=== PATIENT | female | born 1970 | race Caucasian/White ===

== ENCOUNTER 2016-07-05 17:36 | Inpatient (IN) | payer OTHER ==
[~2016-07-05] VITALS: Ht 160 cm; Wt 82.0 kg
[2016-07-05 23:24] VITALS: BP 120/60; PULSE 87; RESP 18
[2016-07-05] MEDS ORDERED: ONDANSETRON 4 MG INJ IV PRN (23:30)
[2016-07-05] MEDS ORDERED: ACETAMINOPHEN 325 MG TAB PO PRN (23:30)
[2016-07-05 23:45] VITALS: Ht 160 cm; Wt 82.0 kg
[2016-07-06] VITALS (10 sets, daily range): BP systolic 108–126; BP diastolic 61–78; PULSE 72–92; RESP 17–18
[2016-07-06] MEDS ORDERED: morphine 2 MG INJ IV PRN (06:00)
[2016-07-06 10:05] LABS: ADD SCAN DIFF NO
[2016-07-06 10:16] LABS: ABNORMAL IP MESSAGE 1; BASOPHIL # 0.1 10^3/ul (0.0-0.1); BASOPHILS % 0.9 % (0.0-2.0); EOSINOPHILS # 0.3 10^3/ul (0.0-0.5); EOSINOPHILS % 4.5 % (0.0-7.0); HEMATOCRIT 29.7 % (37.0-47.0); LYMPHOCYTES % 35.9 % (15.0-51.0); MEAN CORPUSCULAR HEMOGLOBIN 18.7 pg (29.0-33.0); MEAN CORPUSCULAR HGB CONC 26.9 g/dl (32.0-37.0); MEAN CORPUSCULAR VOLUME 69.4 fl (82.0-101.0); MONOCYTE # 0.3 10^3/ul (0.3-0.9); MONOCYTES % 4.9 % (0.0-11.0); NEUTROPHILS % 53.6 % (39.0-77.0); PLATELET COUNT 255 10^3/UL (140-415); RED BLOOD COUNT 4.28 10^6/ul (4.20-5.40); RED CELL DISTRIBUTION WIDTH 24.8 % (11.5-14.5); WHITE BLOOD COUNT 5.5 10^3/ul (4.8-10.8)
[2016-07-06 10:21] LABS: ALBUMIN 3.7 g/dl (3.3-4.9)
[2016-07-06 10:22] LABS: POTASSIUM 3.3 mmol/L (3.5-5.1)
[2016-07-06 10:24] LABS: ALBUMIN/GLOBULIN RATIO 1.15; BILIRUBIN,INDIRECT 0.7 mg/dl (0-1.1); BILIRUBIN,TOTAL 0.7 mg/dl (0.2-1.3); CALCIUM 8.9 mg/dl (8.4-10.2); CREATININE 0.58 mg/dl (0.44-1.00); TOTAL PROTEIN 6.9 g/dl (6.1-8.1)
--- NOTE | 2016-07-06 13:27 | HP ---
Date/Time of Note Date/Time of Note DATE: 07/06/16 TIME: 13:24 Assessment/Plan VTE Prophylaxis VTE Prophylaxis Intervention: SCD's Lines/Catheters IV C[facility]ter Type (from [facility] Peripheral IV Urinary Cath still in place: No Assessment/Plan Assessment/Plan IMPRESSION 1. Dysfunctional Uterine Bleedin/2 fibroids - s/p 2 units of PRBCs. 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 Severe Anemia :2/2 above - see # 1 for plan of care - given pt has already received blood transfusion, will not w/u for iron deficiency, but she has been advised to do so as outpt with PCP 3. Ovarian Cyst - no sign of rapture - outpt survelliance. HPI/ROS Admit Date/Time Admit Date/Time Jul 05, 2016 at 22:25 Hx of Present Illness This is a 46 yo female who initially presented to outside hospital complaining of vaginal bleeding. She was transferred to [facility] ffor insurance reason. On my questioning, she complained of heavy menses for about 4 months. Denied vaginal bleeding in between her periods. She also complained of lower abd pain. Denied fever, chills, nausea, vomiting, chest pain, SOB or urinary symptoms. Pelvic u/ s at outside hospital showed 5 uterine fibroids and a simple ovarian cyst. Her hgb was 5.6. She has received 2 units of PRBCs here. . PMH/Family/Social Past Medical History Medical History: no pertinent history Past Surgical History Past Surgical Hx: no surgical history Social History Alcohol Use: none Smoking Status: Never smoker Drug Use: none Exam/Review of Systems Vital Signs Vitals Vital Signs Date Time Temp Pulse Resp B/P Pulse Ox O2 Delivery O2 Flow Rate FiO2 07/06/16 08:29 98.1 82 18 113/61 99 07/06/16 06:15 Room Air Intake and Output 07/05/16 07/05/16 07/06/16 15:00 23:00 07:00 Intake Total 1310 ml Balance 1310 ml Exam Constitutional: alert, oriented, well developed Head: atraumatic, normocephalic Eyes: EOMI, PERRL Neck: non-tender, supple Respiratory: clear to auscultation, normal air movement Cardiovascular: nl pulses, regular rate and rhythm Gastrointestinal: other (mild tenderness in suprapubic area. ), soft Labs Result Diagram: 07/06/1655 07/06/1655 Medications Medications Current Medications Acetaminophen (Tylenol Tab) 650 mg Q6H PRN PO PAIN AND OR ELEVATED TEMP; Start 07/05/16 at 23:30 Ondansetron HCl (Zofran Inj) 4 mg Q6H PRN IV NAUSEA AND/OR VOMITING Last administered on 07/06/16 06:00; Admin Dose 4 MG; Start 07/05/16 at 23:30 Influenza Virus Vaccine (Fluzone) 0.5 ml ONCE ONCE IM* ; Start 07/08/16 at 09:00 ; Stop 07/08/16 at 09:01 Morphine Sulfate (morphine) 2 mg Q4H PRN IV PAIN Last administered on 07/06/16 06:25; Admin Dose 2 MG; Start 07/06/16 at 06:00 GLEN STILL MD Jul 06, 2016 13:27
--- NOTE | 2016-07-06 17:07 | PDOCDIS ---
Discharge Instructions CONDITION Patient Condition: Good HOME CARE INSTRUCTIONS: Diet Instructions: Regular ACTIVITY: Activity Restrictions: No Restrictions FOLLOW UP/APPOINTMENTS Appointments F/U WITH YOUR PCP AND A DATA MIGRATION CONSULTANT IN 1-2 WEEKS IJEOMA PRIETO Jul 06, 2016 17:07
--- NOTE | 2016-07-06 17:12 | CONS ---
Date/Time of Note Date/Time of Note DATE: 07/06/16 TIME: 17:01 Consultation Date/Type/Reason Admit Date/Time Jul 06 2016 Hospital consult Initial Consult Date This patient is a 46 years old 7 para 7 , living 6 ,Her last ended with demise and delivery at 6 months Her other 6 3 deliveries were normal vaginal. . She came to the emergency room complaining of heavy vaginal bleeding, actually she was seen in [facility] and was sent here due to insurance situation In reviewing her past medical history she has a complaint of heavy menstrual periods for over 6 months. She also inserted an IUD about 2 years ago supposed to be removed 3 months later Due to low hemoglobin and hematocrit patient was transfused with 2 units of blood. She is now stable. On examination her conjunctival or slightly pale. Otherwise ears nose throat appear to be normal Neck is normal no thyromegaly No lymph node enlargement anywhere in her body. Her chest is clear to auscultation and percussion no rales Heart normal sinus rhythm no murmur. Her pulse rate is about 90 Her breasts are soft, nipples are intact, no evidence of any nodule Abdomen is soft bowel sounds are normal No enlargement of the uterus could be felt on abdominal exam Extremities are normal knee-jerk, no edema On pelvic examination she still has some bleeding . Vagina and appears to be normal. The cervix is slightly abnormal (it does contain a fibroid nodule according to ultrasound) Her IUD string is palpable Reason for Consultation Before discharge she was given a prescription for iron and and medroxyprogesterone acetate tablets 10 mg daily 24 HR Interval Summary Free Text/Dictation Disposition: Her hemoglobin is returned to transfusion 8 with hematocrit of 29.7 her vital signs are stable She will be discharged with recommendation to see her pmp certified project manager for removal of IUD and doing a D&C if bleeding repeats possible hysterectomy would be performed This patient is an intelligent person and understand all of those option and will discuss these with her [id number] Detailed Summary Eyes: no complaints (Somewhat pale conjunctiva), No discharge, No other, No pain, No redness, No visual change ENT: No bleeding, No congestion, No discharge, No dysphagia, No no complaints, No other, No pain, No sore throat Respiratory: No cough, No no complaints, No other, No pain, No pleuritic pain, No shortness of breath, No sputum, No wheezing Cardiovascular: No chest pain, No edema, No lightheadedness, No no complaints, No orthopenea, No other, No palpitations, No paroxysmal nocturnal dyspnea Gastrointestinal: No blood, No constipation, No decreased appetite, No diarrhea , No flatus, No nausea, No no complaints, No other, No pain, No passing stool, No vomiting Genitourinary: bleeding (Some degree of vaginal bleeding as I mentioned the uterus is slightly larger than normal with multiple fibroid 1 of them on the cervix no adnexal mass), No discharge, No dysuria, No flank pain, No hematuria, No no complaints, No other Musculoskeletal: No back pain, No bone/joint pain, No neck pain, No no complaints, No other, No restricted range of motion, No swelling Skin: No bruising, No erythema, No laceration, No no complaints, No other, No pruritis, No rash, No skin lesions Neurologic: other (Deep tendon reflexes normal), No confusion, No dizziness, No focal-weakness, No headache, No no complaints , No seizure, No syncope Endocrine: No dry skin, No no complaints, No other, No polydypsia, No polyuria , No temp intolerance Lymphatic: No adenopathy, No lymphadema, No no complaints, No other, No tender nodes Exam/Review of Systems Vital Signs Vitals Vital Signs Date Time Temp Pulse Resp B/P Pulse Ox O2 Delivery O2 Flow Rate FiO2 07/06/16 08:29 98.1 82 18 113/61 99 07/06/16 06:15 Room Air Intake and Output 07/05/16 07/05/16 07/06/16 15:00 23:00 07:00 Intake Total 1310 ml Balance 1310 ml Results Result Diagram: 07/06/16 0955 07/06/16 0955 Results 24 hrs Laboratory Tests Test 07/06/16 09:55 Alanine Aminotransferase (ALT/SGPT) 22 Albumin 3.7 Albumin/Globulin Ratio 1.15 Alkaline Phosphatase 64 Anion Gap 16 Aspartate Amino Transf (AST/SGOT) 13 L Basophils # 0.1 Basophils % 0.9 Blood Urea Nitrogen 10 Calcium Level 8.9 Carbon Dioxide Level 23 Chloride Level 105 Creatinine 0.58 Direct Bilirubin 0.00 Eosinophils # 0.3 Eosinophils % 4.5 Globulin 3.20 Glucose Level 116 Hematocrit 29.7 L Hemoglobin 8.0 L Indirect Bilirubin 0.7 Lymphocytes # 2.0 Lymphocytes % 35.9 Mean Corpuscular Hemoglobin 18.7 L Mean Corpuscular Hemoglobin Concent 26.9 L Mean Corpuscular Volume 69.4 L Mean Platelet Volume Monocytes # 0.3 Monocytes % 4.9 Neutrophils # 3.0 Neutrophils % 53.6 Nucleated Red Blood Cells # 0.0 Nucleated Red Blood Cells % 0.0 Platelet Count 255 Potassium Level 3.3 L Red Blood Count 4.28 Red Cell Distribution Width 24.8 H Sodium Level 141 Total Bilirubin 0.7 Total Protein 6.9 White Blood Count 5.5 Medications Medications Current Medications Acetaminophen (Tylenol Tab) 650 mg Q6H PRN PO PAIN AND OR ELEVATED TEMP; Start 07/05/16 at 23:30 Ondansetron HCl (Zofran Inj) 4 mg Q6H PRN IV NAUSEA AND/OR VOMITING Last administered on 07/06/16 06:00; Admin Dose 4 MG; Start 07/05/16 at 23:30 Influenza Virus Vaccine (Fluzone) 0.5 ml ONCE ONCE IM* ; Start 07/08/16 at 09:00 ; Stop 07/08/16 at 09:01 Morphine Sulfate (morphine) 2 mg Q4H PRN IV PAIN Last administered on 07/06/16 06:25; Admin Dose 2 MG; Start 07/06/16 at 06:00 WILBERT TOLBERT MD Jul 06, 2016 17:11
--- NOTE | 2016-07-07 05:42 | DS ---
DATE OF ADMISSION: 07/05/2016 DATE OF DISCHARGE: 07/06/2016 DISCHARGE DIAGNOSES: 1. Dysfunctional uterine bleeding secondary to fibroids, status post 2 units of packed red blood ce lls. Gynecology consult appreciated. The patient is sent now with OCPs. The patient is to follow up with gynecology as outpatient. 2. Severe anemia secondary to #1, status post 3 units of packed red blood cells, now stable. The p atient is to follow up with outpatient integration consultant. 3. Ovarian cyst, no signs of rupture. Outpatient surveillance. HOSPITAL COURSE: The patient is a 46-year-old female who came from an outside hospital complaining of vaginal bleeding. She was transferred to [facility] for insurance reasons. The patient had been having heavy menses with menorrhagia for 4 months. She denied vaginal bleeding between her periods. She was also complaining of lower abdominal pain. Pelvic ultrasound at an outside hospital showed 5 koi rine fibroids and simple ovarian cyst. ____ 5.6. She received 2 units of packed red blood cells he re at [facility] and 1 unit at outside hospital. The patient was seen by integration consultant here at [facility]. Recommendation was for outpatient VESSEL MASTER followup. The patient was given a p rescription for OCPs and was cleared for discharge. On day of discharge, the patient's vitals, labs , and physical exam were stable. She had no acute complaints. Questions were answered. CONDITION ON DISCHARGE: Stable. DISPOSITION: To home. MEDICATIONS: The patient was given OCPs by integration consultant. The patient has no other home medications . FOLLOWUP: The patient is to follow up with a PCP and integration consultant in 1 to 2 weeks. Greater than 30 minutes was spent coordinating discharge of this patient. Dictated By: IJEOMA PRIETO MD BS/NTS Conf#: [id number] DID#: [id number]
[2016-07-08] MEDS ORDERED: INFLUENZA VIRUS VACCINE 0.5 ML (DISPENSING) IM* ONE (09:00)
== END 2016-07-06 18:35 | disposition home or self-care (01) | DRG 761 ==
LOC: MS1 22:25
PROVIDERS: ADMIT Hospitalist; ATTEND Hospitalist
PROC: 30233N1 Transfusion of Nonautologous Red Blood Cells into Peripheral Vein, Percutaneous Approach (ICD-10-PCS; principal; 2016-07-06)
DX: N93.8 Other specified abnormal uterine and vaginal bleeding (principal); D25.9 Leiomyoma of uterus, unspecified; D64.9 Anemia, unspecified; N83.209 Unspecified ovarian cyst, unspecified side
CPT/HCPCS: 36430; 80053; 85025; 86850; 86900; 86901; 86920; J2270; J2405; P9016